=== PATIENT | female | born 1945 | race Caucasian/White ===

== ENCOUNTER 2017-12-20 12:40 | Emergency (ER) | payer OTHER ==
[~2017-12-20] VITALS: Ht 162.6 cm; Wt 51.7 kg
[~2017-12-20 12:40] MED LIST: AMOXICILLIN500 M1 PO; ZOLOFT100 MG PO
[2017-12-20 15:18] VITALS: BP 132/58
== END 2017-12-20 15:18 | disposition home or self-care (01) ==
LOC: EME 12:40
DX: R13.10 Dysphagia, unspecified (principal); F41.9 Anxiety disorder, unspecified; F32.9 Major depressive disorder, single episode, unspecified
CPT/HCPCS: 70360; 99281; 99284

== ENCOUNTER → 2018-01-01 | Outpatient (CLI) | payer OTHER ==
[~2018-01-01] VITALS: Ht 160 cm; Wt 56.7 kg
[~2018-01-01] MED LIST changes: +ABILIFY15 MG PO; +CALCITONIN-SAL3.8 ML ALT NARES; +CALCIUM 500 +1 EAC2 PO; +KLONOPIN0.5 M1 PO; +KLOR-CON20 MEQ PO; +PRILOSEC20 MG PO; +PROZAC40 MG PO; +TYLENOL EXTRA500 MG PO
== END | disposition home or self-care (01) ==
LOC: AMB 08:30
PROC: 0DJ08ZZ Inspection of Upper Intestinal Tract, Via Natural or Artificial Opening Endoscopic (ICD-10-PCS; principal; 2018-01-01)
DX: R13.12 Dysphagia, oropharyngeal phase (principal); K44.9 Diaphragmatic hernia without obstruction or gangrene; Q39.8 Other congenital malformations of esophagus; F32.9 Major depressive disorder, single episode, unspecified; E78.5 Hyperlipidemia, unspecified; M81.0 Age-related osteoporosis without current pathological fracture; F43.10 Post-traumatic stress disorder, unspecified; I45.6 Pre-excitation syndrome; K22.5 Diverticulum of esophagus, acquired; Z22.322 Carrier or suspected carrier of Methicillin resistant Staphylococcus aureus; Z86.79 Personal history of other diseases of the circulatory system; Z82.49 Family history of ischemic heart disease and other diseases of the circulatory system; Z82.3 Family history of stroke; Z80.52 Family history of malignant neoplasm of bladder